=== PATIENT | male | born 1985 | race Caucasian/White ===

== ENCOUNTER 2020-04-29 10:54 | Day surgery (SDC) | payer MEDICAID, SELFPAY ==
[2020-04-29 11:30] VITALS: BP 146/84; PULSE 110; RESP 18; TEMP 36.2; O2SAT 96; BMI 31.4
--- NOTE | 2020-04-29 11:44 | DCINST_ITS ---
Discharge Diet: No Restrictions Discharge Activity: Return to Normal Activity Return to work on:: 04/29/20 May shower in (days): 1 May resume sexual activity in: No Restrictions Weight Bearing Status: Weight bearing as tolerated Call your doctor if your incision/area has: Sudden Increased Bleeding, Increased Pain/ Swelling, Increased Redness Call your doctor if you observe: Fever of 101 or Higher, Coldness, Increased Pain, Numbness or Tingling, Inability to urinate, Inability to have a bowel movement, Shortness of breath, Dizziness, Chest pain, Uncontrolled pain Change Dressing in (Days):: 1 Remove Dressing in (days):: 1 Allergies/Adverse Reactions: Allergies sulfamethoxazole [From Bactrim] Allergy (Verified 04/29/20 11:28) Anaphylaxis trimethoprim [From Bactrim] Allergy (Verified 04/29/20 11:28) Anaphylaxis Medications to take at Discharge cycloBENZAPRine HCl [Flexeril] 10 mg PO TID 04/29/20 Primary Care Physician: Care Physician,No Primary [Primary Care Provider] - Test Results: Test results from this visit will be discussed in further detail at your follow- up appointment, if applicable. Please Follow Up With: Yonatan Renee DO - as scheduled
--- NOTE | 2020-04-29 12:00 | RAD_ITS ---
STUDY: X-RAY - LUMBAR SPINE REASON FOR EXAM: Male, 35 years old. l5-s1 lumbar injection TECHNIQUE: 1 view(s) of the lumbar spine were obtained. COMPARISON: None FINDINGS: Fluoroscopic views were obtained for intraoperative localization. Please refer to intraoperative report. Electronically Signed: Tessie Poole MD at 15:07 EST Tel , Service support , RAD/Lumbar Spine 2 or 3 Views
[2020-04-29] MEDS: Triamcinolone Acetonide 40 MG/ML Vial (12:10)
[2020-04-29] MEDS: Lidocaine 1% (30 ml sdv) 30 ML Vial (12:15)
[2020-04-29] MEDS: Bupivacaine 0.25% 30 ML Vial (12:15)
[2020-04-29 12:35] VITALS: BP 147/89; PULSE 94; RESP 18; TEMP 36.1; O2SAT 97
== END 2020-04-29 12:35 | disposition home or self-care (01) ==
LOC: SDC 11:02 → AC 11:03
PROVIDERS: Referring Provider Orthopaedic Surgery; Visit Provider Orthopaedic Surgery
PROC: 3E0S3BZ Introduction of Anesthetic Agent into Epidural Space, Percutaneous Approach (ICD-10-PCS; principal; 2020-04-29 11:55)
DX: M48.061 Spinal stenosis, lumbar region without neurogenic claudication (principal); M47.26 Other spondylosis with radiculopathy, lumbar region; M51.36 Other intervertebral disc degeneration, lumbar region; F17.210 Nicotine dependence, cigarettes, uncomplicated; E66.9 Obesity, unspecified; Z68.33 Body mass index [BMI] 33.0-33.9, adult
CPT/HCPCS: 64483; 72100; J7120

== ENCOUNTER 2020-09-09 05:58 | Inpatient (IN) | payer MEDICAID, SELFPAY ==
[2020-09-09] VITALS (12 sets, daily range): BP systolic 107–144; BP diastolic 52–92; PULSE 77–109; RESP 16–18; TEMP 36.2–37.1; O2SAT 96–98; BMI 30.8
[2020-09-09] MEDS: Lactated Ringers 1,000 ML 100 ML IV ×3 (06:42→18:15)
--- NOTE | 2020-09-09 07:30 | RAD_ITS ---
STUDY: X-RAY - LUMBAR SPINE REASON FOR EXAM: Male, 35 years old. L4-5 and L5-S1 anterior lumbar interbody fusion with decompression. TECHNIQUE: 12 intraoperative view(s) of the lumbar spine were obtained. 529 seconds of fluoroscopy were used. Exposure was 381.64 mGy. COMPARISON: Intraoperative images of lumbar spine, 04/29/2020. FINDINGS: Images demonstrate anterior fusion of L4-5 and L5-S1. The metallic plate and screws are intact. The interbody disc spacers are in satisfactory position. Subsequent images demonstrate posterior fusion L4-S1. Please refer to the operative report for further details. RAD/Lumbar Spine 2 or 3 Views IMPRESSION: Fusion of L4-S1 in the OR, as above. Electronically Signed: Ke Pineda DO at 16:26 EDT Tel [phone], Service support ,
--- NOTE | 2020-09-09 07:35 | PCM.DC ---
Discharge Instructions Outpatient Procedure Reason For Visit: LUMBAR INTERBODY FUSION Diet Discharge Diet: No restrictions Activity Discharge Activity: - (No repetitive bending, twisting, or lifting greater than 5 pounds. Wear back brace at all times) May resume sexual activity in: 6 weeks Weight Bearing Status: Weight bearing as tolerated Dressing / Incision Call your doctor if your incision/area has: Continuous Slow Oozing, Sudden Increased Bleeding, Increased Pain/ Swelling, Increased Redness, Foul Smelling Discharge and Swelling at the incision site Call your doctor if you observe: Fever of 101 or Higher, Coldness, Increased Pain, Numbness or Tingling, Change in Color, Inability to urinate, Inability to have a bowel movement, Using more than one pad per hour, Shortness of breath, Dizziness, Fainting spells, Swelling in the ankles, Chest pain, Prolonged hiccupping, Increased palpitations (irregular heartbeat), Calf discomfort and Uncontrolled pain Change Dressing in: 1 day Cleanse incision/area with: Keep Dressing Clean & Dry and - (Daily dressing changes with iodine to incision. Cover incisions with waterproof dressing to shower) Follow Up Care Please Follow Up With: Yonatan Renee DO When: 3 weeks Test Results: Test results from this visit will be discussed in further detail at your follow-up appointment, if applicable. Discharge Plan Admission Admit Date/Time: 09/09/20 05:58 Primary Reason for Your Visit: L4-5, L5-S1 360 fusion Attending Provider: Martina Moctezuma Primary Care Provider: Care Physician,No Primary Consulting Providers: Diego Crenshaw Discharge Orders/Prescriptions Prescriptions: New oxycodone-acetaminophen 5-325 mg tablet 1 - 2 tab PO Q6H PRN PRN (Reason: Pain) 7 Days Qty: 30 RF: 0 Continued cyclobenzaprine 10 MG tablet 10 mg PO TID RF: 0 diphenhydramine HCl 25 MG capsule 25 mg PO QHS PRN PRN (Reason: Allergies) RF: 0 Discontinued ibuprofen 200 MG capsule 200 mg PO PRN PRN (Reason: Pain 1-10 Or Fever) RF: 0 Referrals / Follow Up: Care Physician,No Primary [Primary Care Provider] - Disposition Disposition (needs filled in before D/C Order can be placed): Home, self care
[2020-09-09] MEDS: Cefazolin 2 GM in 0.9% Normal Saline 100 ML IV ×2 (07:39→12:20)
[2020-09-09] MEDS: Heparin 10,000 UNITS/10 ML Vial 10000 UNITS (08:32)
--- NOTE | 2020-09-09 11:01 | OP.PCM_ITS ---
Report of Operation Date of Procedure: 09/09/20 Pre-Operative Diagnosis: 1. Lumbar stenosis, L4-5, L5-S1 with claudication 2. Lumbar degenerative disc disease, L4-5, L5-S1 3. Lumbar spondylosis, L4-5, L5-S1 with radiculopathy Post-Operative Diagnosis: 1. Lumbar stenosis, L4-5, L5-S1 with claudication 2. Lumbar degenerative disc disease, L4-5, L5-S1 3. Lumbar spondylosis, L4-5, L5-S1 with radiculopathy Surgery/Procedure Performed:: 1. L4-5 anterior lumbar interbody fusion 2. L5-S1 anterior lumbar interbody fusion 3. Insertion of intervertebral biomechanical device x2 4. Anterior plate fixation 5. Structural allograft for spinal fusion 6. Neuro monitoring bilateral upper and bilateral lower extremities Description of Surgical Findings:: Statement of medical necessity: The patient is a 35-year-old male with intractable back and leg pain. Image studies confirm the above diagnoses. He has failed conservative treatment to include medicine, therapy, and injections. The patient opted for operative intervention, understanding the risks to include, but not limited to, infection, bleeding, damage to nerves, arteries, and veins, possibility of spinal fluid leak, nonunion, hardware failure, continued pain, need for further surgery, deep vein thrombosis, pulmonary embolism, heart attack, risk of stroke or , retrograde ejaculation. Description of the procedure: The patient was identified in the preoperative holding area. There he received preoperative IV antibiotics, Ancef, and was then transferred to the operative suite. Once in the operative suite, after general endotracheal anesthesia was established, the patient was positioned in the supine position with extra padding placed around the bony prominences. The abdomen was prepped and draped in a standard surgical fashion. Bear morgangger's w ere not turned on until the drapes were sealed with Ioban. An oblique incision was made over the left lower quadrant of the abdomen and taken down to the level of the rectus fascia. This was opened and the retroperitoneum was entered lateral to the left rectus. The reflection was opened and the peritoneum was retracted medially. The great vessels were mobilized and retracted. The midline was marked with biplanar fluoroscopy. A knife was utilized at the L5-S1 level to perform an annulotomy. Endplate elevators, curettes, and pituitaries were utilized to remove disc material. Endplates were prepared with a rasp. An appropriate sized intervertebral cage device measuring 35 x 25 x 12 mm, 8 degree was packed with structural allograft and then impacted into position completing the anterior lumbar interbody fusion at L5-S1. Next attention was turned to the L4-5 level. A knife was utilized to perform an annulotomy. Endplate elevators, curettes, and pituitaries were utilized to remove disc material. Endplates were prepared with a rasp. An appropriate sized cage device measuring 35 x 25 x 10 mm, 8 degree was packed with structural allograft and then impacted into position, completing the anterior lumbar interbody fusion at the L4-5 level. Appropriate sized anterior plates and screws were fixed into position. A plate measuring 25 mm was utilized at the L5-S1 level and a plate measuring 25 mm was utilized at the L4-5 level. 4 screws measuring 5 x 25 mm were secured into both plates. The incision was thoroughly irrigated. The peritoneum was allowed to fall back into position. The fascia was closed with #1 Vicryl, subcutaneous with 2-0 Vicryl, and skin with 3-0 Monocryl. A sterile dressing was applied with 4 x 4's, ABD and tape. Sharp, instrument, and sponge counts were correct at the end of the case. Neuro monitoring was maintained at baseline throughout the duration of the case. The patient was deemed stable to proceed with the posterior portion of this case. Co-surgeon: Hakeem Martinez MD was present during the anterior portion of this case, assisted with and was necessary to perform this portion of the case. Implants: Corelink Biologic: SPARC Type of Anesthesia: General Specimen's removed: None Drains: None Admit VTE Documentation VTE Present on Admission: No VTE Mechan Device Prophylaxis: SCD's and Knee High SUSHIL Hose
--- NOTE | 2020-09-09 12:47 | PCM.OPRPT ---
Problems Associated Problem List Diagnoses (1) Lumbar stenosis: (2) Degenerative disc disease, lumbar: (3) Spondylosis of lumbar spine: Report of Operation Date of Procedure: 09/09/20 Pre-Operative Diagnosis: 1. Degenerative disc disease L4-L5 and L5-S1. 2. Spondylosis L4-L5 and L5-S1 with radiculopathy Post-Operative Diagnosis: The same Surgery/Procedure Performed:: 1. Anterior lumbar interbody fusion L4-L5 with cage and anterior plating with 2 screws in L4 and 2 into L5. 2. Anterior lumbar interbody fusion L5-S1 with cage and anterior plating with 2 screws in L5 and 2 and S1. Type of Anesthesia: General Drains: None Estimated Blood Loss (mL): Less than Description of Procedure: Surgeon: Dr. Renee co-surgeon: Dr. Hakeem Martinez, was present during the entire anterior component and needed for the exposure and visualization for the L4-L5 and L5-S1 disc space patient brought to the operating room. Underwent the appropriate timeout consent. Underwent general anesthesia. Given the appropriate antibiotics. Was prepped and draped in a sterile fashion. All the appropriate monitoring lines were placed. We then made a incision in the left lower quadrant. Dissected down onto the fascia. Freed up the fascia inferior and superior and out laterally into the obliques. Lateral to the rectus we got into the retroperitoneal plane down onto the iliopsoas. We put in the Omni retractor. Then using blunt dissection first freed into the area of the L5-S1 disc space. We able to visualize the ureter and this was pulled over with the retractors. As we got down to the space we could see middle sacral vessels. These were divided between clips and freed up. We then had good visualization of the L5-S1 disc space. Under fluoroscopy we confirmed the midline and that we were in the L5-S1 disc space. Then under fluoroscopy patient underwent the discectomy. Once this was completed and some rasp the endplates. Placed the dilator marked off good size. Then placed the 12 mm cage in good position. Put an anterior plate with 2 screws in L5 and 2 into S1. There was good hemostasis. We then released retractors went further up pulling the iliac vessels medially. And had visualization of the L4-L5 disc space. There was a iliolumbar vessels coming out that were divided between clips. Couple small venous branches that were also divided. Then confirmed that we are in the L4-L5 disc space and close to midline. Again then underwent the discectomy at this level. He was rasp then on the endplates once this was all freed. Had a 10 mm cage that was then placed then with good position. A plate was also again placed with 2 screws into L4 and 2 and L5. Again was good hemostasis. We did a completion pictures. We put a little Surgicel over both cages. And slowly released the retractors. There is no evidence of bleeding. We then closed the fascia with a running strata fix. Then 2-0 and 3-0 Vicryl's in layers. 4-0 Monocryl and Dermabond for the skin. Patient will then be flipped over and the whole posterior be done and dictated separately Complications None
[2020-09-09] MEDS: Bupivacaine 0.25% 30 ML Vial (15:45)
--- NOTE | 2020-09-09 16:22 | OP.PCM_ITS ---
Report of Operation Date of Procedure: 09/09/20 Pre-Operative Diagnosis: 1. Lumbar stenosis, L4-5, L5-S1 with spondylosis 2. Lumbar degenerative disc disease, L4-5, L5-S1 Post-Operative Diagnosis: 1. Lumbar stenosis, L4-5, L5-S1 with spondylosis 2. Lumbar degenerative disc disease, L4-5, L5-S1 Surgery/Procedure Performed:: 1. L4-5 posterior lumbar fusion with pedicle screw fixation 2. L5-S1 posterior lumbar fusion with pedicle screw fixation 3. Neuro monitoring bilateral upper and bilateral lower extremities. Description of Surgical Findings:: Description of procedure: After the anterior lumbar interbody fusion was completed, the patient was deemed stable to proceed with the posterior portion of the case. The patient was transferred to the [facility] operating table in the prone position. All bony prominences were padded accordingly. The lumbar spine was prepped and draped in a standard surgical fashion. Bear hugger's were not turned on until the drapes were placed and sealed with Ioban. AP and lateral fluoroscopy was used to moisés out the pedicles at L4, L5, and S1. Incisions were made 1 cm lateral to the left and right pedicles. There were 2 incisions measuring approximately 5 cm in length vertically oriented to lie 1 cm lateral to the marked pedicles bilaterally. These incisions were carried down to the level of the fascia. The fascia was then split in line with the skin incision and bluntly dissected down to the level of the facet joints. A Jamshidi needle was used to gain entry to the pedicles at the L4 level bilaterally. The starting point for the Jamshidi needle was where the middle of the transverse process met the lateral aspect of the facet joint bilaterally. The Jamshidi needle was malleted into the pedicle. AP and lateral fluoroscopic images were used to ensure that the Jamshidi needle did not travel medial to the pedicle before it entered the posterior vertebral body. Once position of the bilateral Jamshidi needles were confirmed on AP and lateral x-rays. A guidewire was placed through the needles. The Jamshidi needles were removed. A series of soft tissue dissectors was placed over the guidewire. A tap was then run over the bilateral guidewires. At this point appropriate sized pedicle screws measuring 6.5 by 45 mm were placed over the guidewires bilaterally. The guidewires were removed. This process was repeated in the same steps to place bilateral screws at L5 with screws measuring 6.5 by 45 mm and S1 with screws measuring 6.5 by 40 mm. Once all the screws were placed in acceptable alignment of the screws was confirmed on AP and lateral radiographs, and tested by neuromonitoring, appropriate sized rods were placed into the screws bilaterally. The rods were secured with set screws. The S1 screw on the right side did not receive a set screw because of difficulty with the instrumentation. All instrumentation was removed and final x-rays were taken showing acceptable alignment of all hardware. The wounds were thoroughly irrigated with normal saline solution. The incisions were closed with #1 Vicryl for the fascia, 2-0 Vicryl for the subcutaneous, and 2-0 nylon for the skin. Sterile dressings were applied with 4 x 4's ABD and tape. The patient was transferred to the PACU in stable condition. Instrument, sponge, and needle counts were correct at the end of the case. Neuro monitoring was maintained at baseline throughout the duration of the case. Implants: Core Link Biologic: SPARC Type of Anesthesia: General Specimen's removed: None Drains: None Estimated Blood Loss (mL): 300 Fluids Replaced: 2800 cc Complications None Admit VTE Documentation VTE Present on Admission: No VTE Mechan Device Prophylaxis: SCD's and Knee High SUSHIL Hose
--- NOTE | 2020-09-09 16:36 | PCM.OPRPT ---
Report of Operation Date of Procedure: 09/09/20 Pre-Operative Diagnosis: 1. Lumbar stenosis, L4-5, L5-S1 2. Lumbar degenerative disc disease, L4-5, L5-S1 3. Lumbar spondylosis, L4-5, L5-S1 Post-Operative Diagnosis: 1. Lumbar stenosis, L4-5, L5-S1 2. Lumbar degenerative disc disease, L4-5, L5-S1 3. Lumbar spondylosis, L4-5, L5-S1 Surgery/Procedure Performed:: 1. Anterior lumbar interbody fusion, L4-5, L5-S1 2. Posterior spinal fusion with instrumentation, L4-5, L5-S1 Type of Anesthesia: General Specimen's removed: None Drains: None Estimated Blood Loss (mL): 500 cc Fluids Replaced: 3900 cc Complications None Admit VTE Documentation VTE Present on Admission: No VTE Mechan Device Prophylaxis: SCD's and Knee High SUSHIL Hose
--- NOTE | 2020-09-09 16:43 | PCM.PN.ORT ---
Subjective Subjective: The patient was seen and examined postoperatively in the PACU. He is resting comfortably. His pain is controlled. He has no complaints. Dressings are clean dry and intact Objective Data Objective Data Vital Signs: Vital Signs Temp Pulse Resp BP Pulse Ox 97.3 F L 92 18 131/82 H 97 09/09/20 16:17 09/09/20 16:17 09/09/20 16:17 09/09/20 16:17 09/09/20 16:17 Oxygen Delivery Method Room Air Weight: 246 lb 11.156 oz Body Mass Index (BMI) 30.8 Intake & Output: Intake and Output for Last 24 Hours 09/07/20 09/08/20 09/09/20 23:59 23:59 23:59 Intake Total 220 / 220 Output Total 1000 / 1000 Balance -780 / -780 Lab / Micro Data Micro: Microbiology 09/08/20 13:15 Interface Orders SARS-CoV-2 Antigen (Rapid) - Final Radiography Diagnostic Testing: Radiology Impression Lumbar Spine X-Ray 09/09/20 07:30 IMPRESSION: Fusion of L4-S1 in the OR, as above. Electronically Signed: Ke Pineda DO at 16:26 EDT Tel [phone], Service support , Physical Exam Const alert and oriented x3 General Appearance: cooperative and comfortable HEENT normocephalic and head/scalp atraumatic Eyes PERRL and EOMs intact bilaterally Neck General: normal visual inspection and trachea midline Chest Chest: symmetrical chest wall rise Resp normal respiratory effort and normal air movement Cardio regular rate GI soft to palpation, non-tender and non-distended Extremity no calf tenderness Peripheral Pulses: Yes pulses 2+ throughout Neuro CN's II-XII intact bilaterally, moves all extremities, no sensory deficits noted and deep tendon reflexes 2+ bilaterally Motor Exam: strength 5/5 throughout Assessment & Plan Assessment/Plan (1) Lumbar stenosis: Status: Acute Code(s): M48.061 - Spinal stenosis, lumbar region without neurogenic claudication Plan: Admit to floor See orders
--- NOTE | 2020-09-09 18:21 | PCM.CONS.GEN ---
Documented by User: GUY Richardson 09/09/20 18:36 Assessment & Plan Assessment/Plan (1) Spondylosis of lumbar spine: Status: Acute Code(s): M47.816 - Spondylosis without myelopathy or radiculopathy, lumbar region (2) Lumbar stenosis: Status: Acute Code(s): M48.061 - Spinal stenosis, lumbar region without neurogenic claudication Qualifiers: Neurogenic claudication status: unspecified Qualified Code(s): M48.061 - Spinal stenosis, lumbar region without neurogenic claudication (3) Degenerative disc disease, lumbar: Status: Acute Code(s): M51.36 - Other intervertebral disc degeneration, lumbar region (4) Tobacco abuse: Status: Acute Code(s): Z72.0 - Tobacco use (5) Marijuana use: Status: Acute Code(s): F12.90 - Cannabis use, unspecified, uncomplicated Plan: 1. s/p L4-5 posterior lumbar fusion with pedicle screw fixation, L5-S1 posterior lumbar fusion with pedicle screw fixation -postop day 0 -Continue current pain medication regimen as ordered per Ortho. -Continue cefazolin 1 g every 8 hours IV per Ortho 2. Tobacco abuse -NicoDerm transdermal patch ordered daily -Discussed tobacco cessation with patient 3. Marijuana use -Patient reports that he currently uses marijuana for pain and anxiety -Ativan 1 mg every 12 hours as needed for anxiety while hospitalized This patient was seen by Breonna Liz NP-C under the supervision of Dr. Crenshaw. HPI Consult Data Date of Consult: 09/09/20 HPI Narrative HPI Narrative: URI FRAUSTO, is a 35 M who presents today following an anterior lumbar interbody fusion, L4-5, L5-S1 and posterior spinal fusion with instrumentation, L4-5, L5-S1. Patient has no other medical history other than degenerative disc disease and spondylosis of the lumbar spine. Patient states that his pain is currently controlled and he is able to move all extremities. PFSH Home Medications cyclobenzaprine 10 mg PO TID 04/29/20 [History Last Taken Unknown] diphenhydramine HCl 25 mg PO QHS PRN PRN 06/20/20 [History Last Taken Unknown] ibuprofen 200 mg PO PRN PRN 06/20/20 [History Last Taken Unknown] oxycodone-acetaminophen 1 - 2 tab PO Q6H PRN PRN 7 Days #30 tab 09/09/20 [Rx Last Taken Unknown] Allergy/AdvReac Type Severity Reaction Status Date / Time sulfamethoxazole Allergy Anaphylaxis Verified 09/09/20 06:40 [From Bactrim] trimethoprim [From Bactrim] Allergy Anaphylaxis Verified 09/09/20 06:40 Social History Smoking Status: Current every day smoker ROS Constitutional Constitutional: Denies anorexia, body ache(s), chills or fever(s) Cardiovascular Cardiovascular: Reports none Respiratory/Chest Respiratory/Chest: Reports none Gastrointestinal Gastrointestinal: Reports none Genitourinary Genitourinary: Reports none Musculoskeletal Musculoskeletal: Reports back pain and stiffness Integumentary Integumentary: Reports none Neurologic Neurologic: Reports none Psychiatric Psychiatric: Reports anxiety Endocrine Endocrinology: Reports none Hematologic/Lymphatic Hematologic/Lymphatic: Reports none Allergic/Immunologic Allergic/Immunologic: Reports none Physical Exam Const alert, oriented x3 and no apparent distress General Appearance: cooperative, comfortable and anxious Exam Limitations: no limitations HEENT normocephalic and head/scalp atraumatic Eyes PERRL, EOMs intact bilaterally and conjunctivae normal Neck full ROM, no lymphadenopathy and supple Lymph Lymphatic: no lymphadenopathy noted Chest inspection of chest normal Resp normal respiratory effort and normal air movement Cardio regular rate, regular rhythm, S1 normal heart sound and S2 normal heart sound Rate: tachycardic GI normal to inspection, nondistended, normoactive bowel sounds, soft to palpation and non-tender Back/Spine Lumbar Spine / Lower Back: ROM limited Extremity normal to inspection, full ROM and normal capillary refill Peripheral Pulses: Yes pulses 2+ throughout Skin General Skin Exam: no breakdown Lesions: no lesions Rashes: no rashes Trauma: other Per surgical note multiple surgical incisions to lower back, sterile dressing dry and intact Neuro oriented x3 and CN's II-XII intact bilaterally Psych mental status grossly normal, thought process normal, cooperative and speech normal Mood & Affect: anxious Lab / Micro Data Micro: Microbiology 09/08/20 13:15 SARS-CoV-2 Antigen (Rapid) - Final Interface Orders Radiology Impression Lumbar Spine X-Ray 09/09/20 07:30 IMPRESSION: Fusion of L4-S1 in the OR, as above. Electronically Signed: Ke Pineda DO at 16:26 EDT Tel [phone], Service support , Documented by User: Dr. Diego Crenshaw MD 09/09/20 19:34 HPI Consult Data Date of Consult: 09/09/20 PFSH Home Medications cyclobenzaprine 10 mg PO TID 04/29/20 [History Last Taken Unknown] diphenhydramine HCl 25 mg PO QHS PRN PRN 06/20/20 [History Last Taken Unknown] ibuprofen 200 mg PO PRN PRN 06/20/20 [History Last Taken Unknown] oxycodone-acetaminophen 1 - 2 tab PO Q6H PRN PRN 7 Days #30 tab 09/09/20 [Rx Last Taken Unknown] Allergy/AdvReac Type Severity Reaction Status Date / Time sulfamethoxazole Allergy Anaphylaxis Verified 09/09/20 06:40 [From Bactrim] trimethoprim [From Bactrim] Allergy Anaphylaxis Verified 09/09/20 06:40 Social History Smoking Status: Current every day smoker Charges/Coding Addendum Addendum: Dr. Crenshaw: I personally reviewed the chart and examined the patient, and agree with the above findings. 35-year-old male with a history of back pain with significant degenerative changes and stenosis at L4-L5 and L5-S1. Today he is postop an anterior lumbar interbody fusion of L4-5 and L5-S1 as well as a posterior spinal fusion at the same levels. He is still little bit groggy from anesthesia, though he states that his pain is currently well controlled and he is able to move all of his extremities. He does not take any chronic medications other than those for his back pain including Flexeril, ibuprofen, and Percocets. We will continue to monitor and assist where able. Visit Charges Inpatient E&M: 97102 Subs Hosp L3 Office Visits / Consults: 28427 OP Consult L3
[2020-09-09] MEDS: cycloBENZAPRine HCl 10 MG Tablet PO ×2 (18:45→22:19)
[2020-09-09] MEDS: Morphine 4 MG/ML Syringe IV ×3 (18:47→23:27)
[2020-09-09] MEDS: Cefazolin 1 GM/50 ML BAG IV (20:24)
[2020-09-10] VITALS (10 sets, daily range): BP systolic 128–145; BP diastolic 70–82; PULSE 75–97; RESP 16–18; TEMP 36.9–37.1; O2SAT 97–100
[2020-09-10] MEDS: Morphine 4 MG/ML Syringe IV (02:25)
[2020-09-10] MEDS: Cefazolin 1 GM/50 ML BAG IV (04:24)
[2020-09-10] MEDS: oxyCODONE 5 MG Tablet PO ×5 (04:36→23:31)
--- NOTE | 2020-09-10 04:41 | NURSING ---
Pt up OOB this morning with assistance from selina Lara RN. Pt ambulated around room, and assisted back into bed. Pt tolerated well, medicated for pain afterwards.
[2020-09-10] MEDS: cycloBENZAPRine HCl 10 MG Tablet PO ×3 (05:39→21:38)
--- NOTE | 2020-09-10 05:46 | NURSING ---
Sebastian catheter removed at this time. Pt tolerated well.
--- NOTE | 2020-09-10 07:45 | PCM.PN.ORT ---
Subjective Subjective: The patient was seen and examined postoperative day 1 status post L4-5 and L5-S1 360 fusion. He is doing well. He is sitting up in bed resting comfortably. His pain is well controlled. He has been progressing well with mobilization. He does describe some mild decrease sensation in the right anterior thigh. Otherwise he denies any acute numbness tingling weakness or changes in bowel or bladder function. His bowel sounds are present but he has not passed gas or had a bowel movement yet. Objective Data Objective Data Vital Signs: Vital Signs Temp Pulse Resp BP Pulse Ox 98.6 F 95 16 135/82 H 98 09/10/20 05:32 09/10/20 07:01 09/10/20 05:32 09/10/20 05:32 09/10/20 05:32 Oxygen Delivery Method Room Air Weight: 246 lb 11.156 oz Body Mass Index (BMI) 30.8 Intake & Output: Intake and Output for Last 24 Hours 09/08/20 09/09/20 09/10/20 23:59 23:59 23:59 Intake Total 5678.34 / 5978.34 1633.33 / 1633.33 Output Total 1600 / 3800 3700 / 3700 Balance 4078.34 / 2178.34 -2066.67 / -2066.67 Lab / Micro Data Micro: Microbiology 09/08/20 13:15 Interface Orders SARS-CoV-2 Antigen (Rapid) - Final Radiography Diagnostic Testing: Radiology Impression Lumbar Spine X-Ray 09/09/20 07:30 IMPRESSION: Fusion of L4-S1 in the OR, as above. Electronically Signed: Ke Pineda DO at 16:26 EDT Tel [phone], Service support , Physical Exam Const alert and oriented x3 General Appearance: cooperative and comfortable Eyes PERRL and EOMs intact bilaterally Neck General: normal visual inspection and trachea midline Chest Chest: abnormal inspection of the chest Resp normal respiratory effort and normal air movement Cardio regular rate GI soft to palpation, non-tender and non-distended Back/Spine Back/Spine Narrative: Dressings on abdomen and lumbar region are clean dry and intact Extremity normal to inspection, normal capillary refill and no calf tenderness Peripheral Pulses: Yes pulses 2+ throughout Neuro CN's II-XII intact bilaterally, moves all extremities, no focal motor deficits and deep tendon reflexes 2+ bilaterally Neuro Narrative: Sensation intact grossly in all lower extremity dermatomes. Mild decrease sensation reported in the right anterior thigh. Motor Exam: strength 5/5 throughout and muscle tone normal throughout Assessment & Plan Assessment/Plan (1) Lumbar stenosis: Status: Acute Code(s): M48.061 - Spinal stenosis, lumbar region without neurogenic claudication Qualifiers: Neurogenic claudication status: unspecified Qualified Code(s): M48.061 - Spinal stenosis, lumbar region without neurogenic claudication Plan: Continue pain control Continue mobilization with activity restrictions and back brace Okay to advance diet when passing gas and having bowel movements Daily dressing changes with iodine to incisions Discharge planning
--- NOTE | 2020-09-10 10:20 | CASEMGMT ---
RN CM Face to Face with patient for initial transition planning/care coordination assessment. RN CM introduced self and role at [facility]. Patient sitting in at edge of bed, alert and oriented, girlfriend at bedside. Patient willing to participate in assessment and is able to answer all questions appropriately. Care providers, pharmacy, and demographics verified. Patient wishes to discharge home, denies need for home health at this time. Patient states he has no further needs or concerns at this time. CM to follow for discharge planning needs that may arise. PCP: Ousmane Specialists: surgeon Lulu Renee Pharmacy: [facility] Insurance: [employer] Prescription Benefit: yes Living Will/HPOA: none LNOK: mother, girlfriend Living Arrangements: Patient lives alone in a mobile home with 4 steps to enter the home. Patient states he is independent at home. Transportation: girlfriend/mother DME/HHC: Patient states he has walker and raised toilet seat. Patient denies previous HHC or SNF. Disposition Plan: Patient to discharge home with family support and follow-up plans in place. Swati CORTES, RN, CM
--- NOTE | 2020-09-10 11:08 | PCM.PROGNOTE ---
Subjective Subjective: Patient is doing well. Pain appears controlled. Sitting up in bed. Dressing intact left lower quadrant. Objective Data Objective Data Vital Signs: Vital Signs Temp Pulse Resp BP Pulse Ox 98.7 F 77 18 133/80 H 97 09/10/20 08:30 09/10/20 08:30 09/10/20 08:30 09/10/20 08:30 09/10/20 08:30 Oxygen Delivery Method Room Air Weight: 246 lb 11.156 oz Body Mass Index (BMI) 30.8 Intake & Output: Intake and Output for Last 24 Hours 09/08/20 09/09/20 09/10/20 23:59 23:59 23:59 Intake Total 5678.34 / 5978.34 1633.33 / 1633.33 Output Total 1600 / 3800 3700 / 3700 Balance 4078.34 / 2178.34 -2066.67 / -2066.67 Lab / Micro Data Micro: Microbiology 09/08/20 13:15 Interface Orders SARS-CoV-2 Antigen (Rapid) - Final Radiography Diagnostic Testing: Radiology Impression Lumbar Spine X-Ray 09/09/20 07:30 IMPRESSION: Fusion of L4-S1 in the OR, as above. Electronically Signed: Ke Pineda DO at 16:26 EDT Tel [phone], Service support , Physical Exam Narrative Patient awake alert oriented No apparent distress Afebrile vital signs stable Dressing intact left lower quadrant Sitting comfortably, appears to move all extremities well Assessment & Plan Assessment/Plan (1) Degenerative disc disease, lumbar: Status: Acute Code(s): M51.36 - Other intervertebral disc degeneration, lumbar region Plan: 1. Degenerative disc disease. Patient status post ALIF L4-L5 and L5-S1. He is doing well postoperatively. We will continue to follow as needed
--- NOTE | 2020-09-10 12:50 | PN.HOSP_ITS ---
Subjective Subjective: Patient seen and examined. He complains of mild pain at the anterior incision site but pain was manageable. He had no other complaints. Review of systems otherwise negative. He has remained hemodynamically stable. Objective Data Objective Data Vital Signs: Vital Signs Temp Pulse Resp BP Pulse Ox 98.7 F 77 18 133/80 H 97 09/10/20 08:30 09/10/20 08:30 09/10/20 08:30 09/10/20 08:30 09/10/20 08:30 Oxygen Delivery Method Room Air Weight: 246 lb 11.156 oz Body Mass Index (BMI) 30.8 Intake & Output: Intake and Output for Last 24 Hours 09/08/20 09/09/20 09/10/20 23:59 23:59 23:59 Intake Total 5678.34 / 5978.34 2433.33 / 2433.33 Output Total 1600 / 3800 4000 / 4000 Balance 4078.34 / 2178.34 -1566.67 / -1566.67 Lab / Micro Data Micro: Microbiology 09/08/20 13:15 Interface Orders SARS-CoV-2 Antigen (Rapid) - Final Radiography Diagnostic Testing: Radiology Impression Lumbar Spine X-Ray 09/09/20 07:30 IMPRESSION: Fusion of L4-S1 in the OR, as above. Electronically Signed: Ke Pineda DO at 16:26 EDT Tel [phone], Service support , Physical Exam Const oriented x3 and no apparent distress Exam Limitations: no limitations HEENT head/scalp atraumatic and moist oral mucous membranes Head and Scalp: normocephalic Neck no lymphadenopathy Resp normal respiratory effort, no retractions, no use of accessory muscles and clear to auscultation bilaterally GI normal to inspection, nondistended, normoactive bowel sounds, soft to palpation, non-tender and non-distended Extremity normal to inspection, full ROM and no clubbing, cyanosis or edema Skin Skin Narrative: clean dressing over lower anterior abdomen incision site. Neuro oriented x3 and CN's II-XII intact bilaterally Sensorium / Orientation: awake and alert Psych affect normal Assessment & Plan Assessment/Plan (1) Lumbar stenosis: Status: Acute Code(s): M48.061 - Spinal stenosis, lumbar region without neurogenic claudication Qualifiers: Neurogenic claudication status: unspecified Qualified Code(s): M48.061 - Spinal stenosis, lumbar region without neurogenic claudication (2) Degenerative disc disease, lumbar: Status: Acute Code(s): M51.36 - Other intervertebral disc degeneration, lumbar region (3) Tobacco abuse: Status: Acute Code(s): Z72.0 - Tobacco use (4) Marijuana use: Status: Acute Code(s): F12.90 - Cannabis use, unspecified, uncomplicated Plan: #Spinal stenosis with lumbar disc degenerative disease * s/p L4-5 and L5-S1 posterior lumbar fusion with pedicle screw fixation * today is pOD 1. pain is fairly well controlled * Pain medication as per primary team orthopedics * on IV cefazolin 1 g every 8 hours for prophylaxis as per orthopedic * Incentive spirometry. PT OT consult. Fall precautions. * #Nicotine dependence: counseled to quit. Nicotine patch 21mg daily #Marijuana dependence * patient says he uses marijuana for pain and anxiety. * ativan 1mg every 12 hours * * DVT prophylaxis: SCDs Visit Charges Inpatient E&M: 36274 Subs Hosp L2
[2020-09-11 03:00] VITALS: PULSE 107
[2020-09-11 03:12] VITALS: BP 158/86; PULSE 100; RESP 18; TEMP 36.9; O2SAT 96
[2020-09-11] MEDS: oxyCODONE 5 MG Tablet PO ×3 (04:06→15:29)
[2020-09-11] MEDS: cycloBENZAPRine HCl 10 MG Tablet PO ×2 (05:54→15:29)
[2020-09-11] MEDS: Ensure Surgery 237 ML LIQUID PO (08:11)
[2020-09-11 08:31] VITALS: PULSE 106
[2020-09-11 08:53] VITALS: BP 155/76; PULSE 96; RESP 18; TEMP 36.8; O2SAT 99
--- NOTE | 2020-09-11 11:43 | PCM.PN.ORT ---
Subjective Subjective: The patient was seen and examined postoperative day 1 status post L4-5 and L5-S1 ALIF and posterior spinal fusion with instrumentation. He is doing very well. His pain is minimal. He is passing gas but has not yet had a bowel movement. He is mobilizing well with physical therapy and independently. He is currently on full liquid diet and tolerating it well. His only complaint is mild decrease sensation in the right anterior thigh. Otherwise he has no acute numbness tingling weakness or changes in bowel or bladder function. Objective Data Objective Data Vital Signs: Vital Signs Temp Pulse Resp BP Pulse Ox 98.2 F 96 18 155/76 H 99 09/11/20 08:53 09/11/20 08:53 09/11/20 08:53 09/11/20 08:53 09/11/20 08:53 Oxygen Delivery Method Room Air Weight: 246 lb 11.156 oz Body Mass Index (BMI) 30.8 Intake & Output: Intake and Output for Last 24 Hours 09/09/20 09/10/20 09/11/20 23:59 23:59 23:59 Intake Total 5678.34 / 5978.34 3383.33 / 3383.33 400 / 400 Output Total 1600 / 3800 5350 / 5350 500 / 500 Balance 4078.34 / 2178.34 -1966.67 / -1966.67 -100 / -100 Lab / Micro Data Micro: Microbiology 09/08/20 13:15 Interface Orders SARS-CoV-2 Antigen (Rapid) - Final Physical Exam Const alert, oriented x3 and no apparent distress General Appearance: cooperative and comfortable HEENT Head and Scalp: normocephalic and atraumatic Eyes PERRL and EOMs intact bilaterally Neck full ROM General: normal visual inspection and trachea midline Chest inspection of chest normal Cardio regular rate GI soft to palpation, non-tender and non-distended GI Narrative: Dressing clean dry and intact Back/Spine normal to inspection Back/Spine Narrative: Dressing clean dry and intact Lumbar Spine / Lower Back: normal to inspection Extremity normal to inspection, full ROM, no clubbing, cyanosis or edema and no calf tenderness Peripheral Pulses: Yes pulses 2+ throughout Skin no rashes or lesions noted Neuro oriented x3, CN's II-XII intact bilaterally, moves all extremities, no focal motor deficits, no sensory deficits noted, deep tendon reflexes 2+ bilaterally and gait normal Neuro Narrative: There is mild reported decrease sensation over the right anterior thigh. Otherwise sensation intact fully Motor Exam: strength 5/5 throughout and muscle tone normal throughout Assessment & Plan Assessment/Plan (1) Lumbar stenosis: QUALIFIERS: Neurogenic claudication status: unspecified Qualified Code(s): M48.061 - Spinal stenosis, lumbar region without neurogenic claudication PLAN: Continue pain control Continue mobilization with activity restrictions and back brace Hold diet at full liquids until patient has bowel movement, then okay to advance as tolerated Senokot, milk of magnesia, and suppository as needed Discharge planning. Patient will likely be discharged once he has a bowel movement
--- NOTE | 2020-09-11 11:51 | PCM.DC.SUM ---
Providers Date of Admission: 09/09/20 Primary Care Physician: No Primary Care Phys Consultations 09/09/20 18:01 Consult: Hospitalist Routine Consulting Provider: Diego Crenshaw Reason for Consult: Medical Management EMERGENT Consult: No MD Notified: Yes Date Notified:: 09/09/20 Time Notified: 18:07 Method of Notification: Verbal Reason For Visit: LUMBAR INTERBODY FUSION Diagnosis Discharge Diagnosis (1) Lumbar stenosis: Status: Acute Code(s): M48.061 - Spinal stenosis, lumbar region without neurogenic claudication Qualifiers: Neurogenic claudication status: unspecified Qualified Code(s): M48.061 - Spinal stenosis, lumbar region without neurogenic claudication Plan: Discharge home Follow-up with Dr. Renee in 3 weeks for suture removal See discharge instructions attached Medications at Discharge Home Medications cyclobenzaprine 10 mg PO TID 04/29/20 diphenhydramine HCl 25 mg PO QHS PRN PRN 06/20/20 oxycodone-acetaminophen 1 - 2 tab PO Q6H PRN PRN 7 Days #30 tab 09/09/20 Hospital Course Operations - (L4-5 and L5-S1 360 fusion) Summary of Care Provided Minutes Spent on Discharge: 20 Hospital Course: The patient underwent L4-5 and L5-S1 anterior lumbar interbody fusion and posterior spinal fusion with instrumentation on 09/10/2020. He was subsequently admitted to the floor. The hospitalist was consulted for medical management. His pain was well controlled and he progressed well with physical therapy and was mobilizing independently. He was tolerating his diet. No significant medical issues were reported. He was subsequently discharged home on 09/11/20 to follow-up with Dr. Walker clinic in 3 weeks. Physical Exam Const alert, oriented x3 and no apparent distress General Appearance: cooperative and comfortable Orientation / Consciousness: awake and oriented to person HEENT normocephalic Head and Scalp: normal to inspection, normocephalic and atraumatic Eyes PERRL and EOMs intact bilaterally Pupil: PERRL Chest Chest: symmetrical chest wall rise Resp normal respiratory effort Cardio regular rate Peripheral Pulses: pulses 2+ throughout GI soft to palpation, non-tender and non-distended GI Narrative: Dressing clean dry and intact Back/Spine normal to inspection Back/Spine Narrative: Dressing clean dry and intact Extremity normal to inspection, full ROM, normal capillary refill and no clubbing, cyanosis or edema Peripheral Pulses: Yes pulses 2+ throughout Skin no rashes or lesions noted Neuro oriented x3, CN's II-XII intact bilaterally, moves all extremities, no focal motor deficits, no sensory deficits noted, deep tendon reflexes 2+ bilaterally and gait normal Motor Exam: strength 5/5 throughout and muscle tone normal throughout ABG / Lab / Microbiology Data Microbiology: Microbiology 09/08/20 13:15 Interface Orders SARS-CoV-2 Antigen (Rapid) - Final D/C Instructions Discharge Diet: No restrictions Discharge Activity: - (No repetitive bending, twisting, or lifting greater than 5 pounds. Wear back brace at all times) May resume sexual activity in: 6 weeks Weight Bearing Status: Weight bearing as tolerated Call your doctor if your incision/area has: Continuous Slow Oozing, Sudden Increased Bleeding, Increased Pain/ Swelling, Increased Redness, Foul Smelling Discharge and Swelling at the incision site Call your doctor if you observe: Fever of 101 or Higher, Coldness, Increased Pain, Numbness or Tingling, Change in Color, Inability to urinate, Inability to have a bowel movement, Using more than one pad per hour, Shortness of breath, Dizziness, Fainting spells, Swelling in the ankles, Chest pain, Prolonged hiccupping, Increased palpitations (irregular heartbeat), Calf discomfort and Uncontrolled pain Cleanse incision/area with: Keep Dressing Clean & Dry and - (Daily dressing changes with iodine to incision. Cover incisions with waterproof dressing to shower) Please Follow Up With: Yonatan Renee, When: 3 weeks Meaningful Use Info Meaningful Use Diagnoses (Choose all that apply): None applicable Discharge Plan Admission Admit Date/Time: 09/09/20 05:58 Primary Reason for Your Visit: L4-5, L5-S1 360 fusion Attending Provider: Martina Moctezuma Primary Care Provider: Care Physician,No Primary Consulting Providers: Diego Crenshaw Discharge Orders/Prescriptions Prescriptions: New oxycodone-acetaminophen 5-325 mg tablet 1 - 2 tab PO Q6H PRN PRN (Reason: Pain) 7 Days Qty: 30 RF: 0 Continued cyclobenzaprine 10 MG tablet 10 mg PO TID RF: 0 diphenhydramine HCl 25 MG capsule 25 mg PO QHS PRN PRN (Reason: Allergies) RF: 0 Discontinued ibuprofen 200 MG capsule 200 mg PO PRN PRN (Reason: Pain 1-10 Or Fever) RF: 0 Referrals / Follow Up: Care Physician,No Primary [Primary Care Provider] - Disposition Disposition (needs filled in before D/C Order can be placed): Home, self care
--- NOTE | 2020-09-11 12:02 | PN.HOSP_ITS ---
Subjective Subjective: Patient seen and examined. He has no complaints this morning and feels well. Pain is well controlled. Review of symptoms otherwise negative. Objective Data Objective Data Vital Signs: Vital Signs Temp Pulse Resp BP Pulse Ox 98.2 F 96 18 155/76 H 99 09/11/20 08:53 09/11/20 08:53 09/11/20 08:53 09/11/20 08:53 09/11/20 08:53 Oxygen Delivery Method Room Air Weight: 246 lb 11.156 oz Body Mass Index (BMI) 30.8 Intake & Output: Intake and Output for Last 24 Hours 09/09/20 09/10/20 09/11/20 23:59 23:59 23:59 Intake Total 5678.34 / 5978.34 3383.33 / 3383.33 400 / 400 Output Total 1600 / 3800 5350 / 5350 500 / 500 Balance 4078.34 / 2178.34 -1966.67 / -1966.67 -100 / -100 Lab / Micro Data Micro: Microbiology 09/08/20 13:15 Interface Orders SARS-CoV-2 Antigen (Rapid) - Final Physical Exam Const alert, oriented x3 and no apparent distress General Appearance: cooperative, comfortable and anxious Exam Limitations: no limitations HEENT normocephalic, head/scalp atraumatic and moist oral mucous membranes Eyes PERRL, EOMs intact bilaterally and conjunctivae normal Neck full ROM, no lymphadenopathy and supple Lymph Lymphatic: no lymphadenopathy noted Chest inspection of chest normal Resp normal respiratory effort, normal air movement, no retractions, no use of accessory muscles and clear to auscultation bilaterally Cardio regular rate, regular rhythm, S1 normal heart sound and S2 normal heart sound Rate: tachycardic GI normal to inspection, nondistended, normoactive bowel sounds, soft to palpation, non-tender and non-distended Back/Spine Lumbar Spine / Lower Back: ROM limited Extremity normal to inspection, full ROM, normal capillary refill and no clubbing, cyanosis or edema Skin no rashes or lesions noted Skin Narrative: clean dressing over lower anterior abdomen incision site and also over lower back at surgical area. General Skin Exam: no breakdown Lesions: no lesions Rashes: no rashes Trauma: other Per surgical note multiple surgical incisions to lower back, sterile dressing dry and intact Neuro oriented x3 and CN's II-XII intact bilaterally Sensorium / Orientation: awake and alert Psych mental status grossly normal, thought process normal, cooperative, affect normal and speech normal Mood & Affect: anxious Assessment & Plan Assessment/Plan (1) Lumbar stenosis: QUALIFIERS: Neurogenic claudication status: unspecified Qualified Code(s): M48.061 - Spinal stenosis, lumbar region without neurogenic claudication (2) Degenerative disc disease, lumbar: (3) Tobacco abuse: (4) Marijuana use: PLAN: #Spinal stenosis with lumbar disc degenerative disease * s/p L4-5 and L5-S1 posterior lumbar fusion with pedicle screw fixation * today is pOD 2. pain is much better controlled. * Pain medication as per primary team orthopedics * received IV cefazolin 1gram every 8 hours for 24 hours, per primary team. * Incentive spirometry. PT OT consult. Fall precautions. * #Nicotine dependence: counseled to quit. Nicotine patch 21mg daily #Marijuana dependence * patient says he uses marijuana for pain and anxiety. * ativan 1mg every 12 hours * * DVT prophylaxis: SCDs Visit Charges Inpatient E&M: 34971 Subs Hosp L2
[2020-09-11] MEDS: Magnesium Hydroxide 30 ML UDC PO (12:33)
[2020-09-11 14:54] VITALS: BP 143/73; PULSE 114; RESP 18; TEMP 37.1; O2SAT 100
--- NOTE | 2020-09-11 15:00 | NURSING ---
Addendum entered by Dorene Don 09/11/20 15:10: Dr. Renee is okay with pt going home. Original Note: Pt called this nurse and informed me that he had a bowel movement. This nurse called Dr. Renee and informed him of the Bowel movement.
--- NOTE | 2020-09-11 15:55 | NURSING ---
this nurse went over Discharge drsg change instructions. Patient and girlfriend understand how to change both back and abdominal drsgs. this nurse changed back incision drsg but not the abd. Girlfriend sayed she would change it at home as pt was wanting to get out of here and go home.
== END 2020-09-11 15:52 | disposition home or self-care (01) | DRG 304 ==
LOC: ACINP 06:08 → MS3 20:21
PROVIDERS: Admitting Provider Orthopaedic Surgery; Referring Provider Orthopaedic Surgery; Visit Provider Student in an Organized Health Care Education/Training Program
PROC: 0SG00A0 Fusion of Lumbar Vertebral Joint with Interbody Fusion Device, Anterior Approach, Anterior Column, Open Approach (ICD-10-PCS; principal; 2020-09-09 07:00)
DX: M48.061 Spinal stenosis, lumbar region without neurogenic claudication (principal); M47.26 Other spondylosis with radiculopathy, lumbar region; M51.36 Other intervertebral disc degeneration, lumbar region; M51.37 Other intervertebral disc degeneration, lumbosacral region; F17.210 Nicotine dependence, cigarettes, uncomplicated; F12.20 Cannabis dependence, uncomplicated; F41.9 Anxiety disorder, unspecified; Z20.822 Contact with and (suspected) exposure to COVID-19
CPT/HCPCS: 72100; 76000; 87426; 97162; 99251; 99406; C1713; C9803; J7120; G0463